=== PATIENT | male | born 1925 | race Native Hawaiian/Other Pacific Islander ===

== ENCOUNTER 2017-02-01 12:19 | Outpatient (CLI) | payer OTHER | END 2017-02-01 19:58 | disposition home or self-care (01) | LOC: LABW 12:19 | DX: R41.82 Altered mental status, unspecified (principal) | CPT/HCPCS: 36415; 80320; 81000 ==

== ENCOUNTER 2017-05-23 10:26 | Outpatient (CLI) | payer OTHER ==
[2017-05-23 11:08] LABS: POTASSIUM 4.1 mmol/L (3.6-5.2)
== END 2017-05-23 22:48 | disposition home or self-care (01) ==
LOC: LABW 10:26
PROVIDERS: Nurse Practitioner
DX: R25.2 Cramp and spasm (principal)
CPT/HCPCS: 36415; 80048; 82607; 82746

== ENCOUNTER → 2017-07-25 17:38 | Outpatient (CLI) | payer OTHER | END | disposition home or self-care (01) | LOC: AMB 17:38 ==